=== PATIENT | male | born 1965 | race Caucasian/White ===

== ENCOUNTER 2020-12-28 06:03 | Day surgery (SDC) | payer BC ==
[2020-12-28 06:25] VITALS: O2SAT 98
[2020-12-28] MEDS ORDERED: Lactated Ringers 1,000 ML IV SCH (06:30)
[2020-12-28] MEDS ORDERED: DIPRIVAN 200 MG/20 ML IV ONE (07:26)
[2020-12-28] MEDS ORDERED: Ephedrine Sulfate 50 MG/ML ONE (07:46)
[2020-12-28 08:47] VITALS: BP 110/68; PULSE 68
--- NOTE | 2020-12-28 11:25 | OP ---
SURGERY DATE/TIME: 12/28/2020 0734 PREOPERATIVE DIAGNOSIS: Screening colonoscopy. POSTOPERATIVE DIAGNOSES: 1) Sigmoid colon polyp. 2) Sigmoid diverticulosis. PROCEDURE: Colonoscopy. SURGEON: Francesco Rodriguez M.D. ANESTHESIA: MAC by Kole Alvarado CRNA. ESTIMATED BLOOD LOSS: Minimal. SPECIMENS: Hot forceps polypectomy from the sigmoid colon. DESCRIPTION OF PROCEDURE: After informed written consent was obtained, the patient was taken to the endoscopy suite. He was placed in left lateral decubitus position and anesthesia was titrated to desired level of consciousness. Digital rectal exam was performed and showed normal sphincter tone and no internal lesions. The scope was inserted into the rectum and sequentially the entire colonic mucosa was traversed. The level of cecum was reached and verified with direct visualization of ileocecal valve. Upon withdrawal there was some diverticula noted mostly in the sigmoid colon. There was sessile polyp which was removed with hot forceps, grasped, cauterized and removed in piecemeal fashion with no significant bleeding. The entire lesion appeared to be adequately removed with no complications. Upon further withdrawal no other lesions were encountered. Retroflexion was performed prior to withdrawal and was within normal limits. The scope was removed and the patient was transferred to the recovery room in good condition. I have advised that he follow up in a week for pathology report.
== END 2020-12-28 09:04 | disposition home or self-care (01) ==
LOC: SDC 06:03
PROVIDERS: ATTEND Family Medicine
DX: Z12.11 Encounter for screening for malignant neoplasm of colon (principal); K57.30 Diverticulosis of large intestine without perforation or abscess without bleeding; D12.5 Benign neoplasm of sigmoid colon; I10 Essential (primary) hypertension
CPT/HCPCS: 88305; J2704